=== PATIENT | male | born 1995 | race Caucasian/White ===

== ENCOUNTER 2022-01-09 14:16 | Emergency (ER) | payer SELFPAY ==
[2022-01-09 14:37] VITALS: BP 121/82; PULSE 95; TEMP 98.1; BMI 21.6
[2022-01-09] MEDS ORDERED: KETOROLAC TROMETHAMINE 30 MG/1 ML VIAL IM ONE (14:47)
[2022-01-09] MEDS ORDERED: LIDOCAINE 5% TOPICAL PATCH TP ONE (14:47)
[2022-01-09] MEDS ORDERED: LIDOCAINE PATCH REMOVAL MC SCH (22:00)
== END 2022-01-09 15:37 | disposition home or self-care (01) ==
LOC: FER 14:16
PROC: 3E0233Z Introduction of Anti-inflammatory into Muscle, Percutaneous Approach (ICD-10-PCS; principal; 2022-01-09)
DX: M54.50 Low back pain, unspecified (principal); V49.50XA Passenger injured in collision with unspecified motor vehicles in traffic accident, initial encounter
CPT/HCPCS: 72100-TC-FY; 99284-25